=== PATIENT | female | born 2000 | race Two or more races ===

== ENCOUNTER 2024-08-06 08:00 | Emergency (ER) | payer OTHER ==
[~2024-08-06] VITALS: Ht 167.6 cm; Wt 105.7 kg
[2024-08-06] MEDS ORDERED: KETOROLAC TROMETHAMINE 60 MG VIAL IM ONE ×2 (08:53→09:00)
[2024-08-06] MEDS ORDERED: CEFTRIAXONE SODIUM 1,000 MG VIAL ONE (08:53)
[2024-08-06] MEDS ORDERED: LIDOCAINE HCL 1% 10ML VIAL ONE (08:54)
[2024-08-06] MEDS ORDERED: CEFTRIAXONE SODIUM 1,000 MG VIAL IM ONE (09:00)
== END 2024-08-06 10:12 ==
LOC: ER 08:14
DX: K08.89 Other specified disorders of teeth and supporting structures (principal); K04.7 Periapical abscess without sinus